=== PATIENT | female | born 1940 | race Caucasian/White ===

== ENCOUNTER 2020-03-29 08:10 | Day surgery (SDC) | payer MEDICARE, OTHER ==
--- NOTE | 2020-03-26 14:39 | HP ---
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 There is no clover malignancy but given their findings she is in need of excisional biopsy, lumpectomy right breast with prior needle placement to evaluate the entire area in question. Family history is negative for breast cancer. She took some hormone replacement therapy for a few years in the past and now currently on medication. PAST MEDICAL HISTORY: Diabetes mellitus type II. 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 PAST SURGICAL HISTORY: Plates and screws in ankle in the past. MEDICATIONS: Plavix. Venlafaxine. ALLERGIES: NKDA. FAMILY HISTORY: Negative in regards to this problem. Negative for breast cancer. SOCIAL HISTORY: No smoking or alcohol abuse. REVIEW OF SYSTEMS: Fourteen systems reviewed. No chest pain or palpitations. Other systems negative or noncontributory as above and per preadmission questionnaire. PHYSICAL EXAMINATION: GENERAL: No acute distress. HEENT: Sclerae nonicteric. NECK: No JVD. CHEST: Equal excursion, nonlabored breathing. CVS: Regular rate and rhythm. BREASTS: She has got a little induration where she had core biopsy recently on the right. No large bumpy masses currently. ABDOMEN: Soft, nontender. EXTREMITIES: No cyanosis. NEURO: Alert, moving extremities symmetrically. PSYCH: Appropriate mood and affect. IMPRESSION: Atypical ductal hyperplasia on core biopsy of right breast. She is in need of lumpectomy with prior needle placement for definitive path to evaluate the whole area to rule out any areas of malignancy. Explained the risks and benefits explained in detail including but not limited to bleeding or infection, risk of wound dehiscence possibly requiring packing, the fact that we will be removing some tissue that there could be some contour changes, risk of hematoma or seroma formation, possibility should she had malignancy in the specimen she will need a wider excision and lymph node sampling at a later date. Risk of burning or numbness but not limited to. She understands and agrees to the planned procedure, will proceed with right breast lumpectomy with prior needle placement as an outpatient.
[~2020-03-29 08:10] MED LIST: Lactated Ringers 1,000 ML IV ONE; Sensorcaine 0.25% 10 ML ONE
[2020-03-29] MEDS ORDERED: CEFAZOLIN 2 GM-D5W BAG** 2 GM/50 ML ML IV ONE (08:20)
[2020-03-29] MEDS ORDERED: Lactated Ringers 0 ML IV ONE (08:20)
[2020-03-29] MEDS ORDERED: Lactated Ringers 1,000 ML IV SCH (08:30)
[2020-03-29] MEDS ORDERED: CEFAZOLIN 2 GM-D5W BAG** 2 GM/50 ML ML IV SCH (08:30)
[2020-03-29 09:35] LABS: ALKALINE PHOSPHATASE 93 U/L (38-126); ANION GAP 8.1 MEQ/L (5-15); BLOOD UREA NITROGEN 23 mg/dL (7-17); CHLORIDE 104 mmol/L (98-107); Calcium 9.5 mg/dL (8.4-10.2); Carbon Dioxide 29 mmol/L (22-30); Creatinine 1 0.89 mg/dL (0.52-1.04); EST GLOMERULAR FILTRATION RATE > 60.0 ML/MIN; Glucose 95 mg/dL (74-106); Potassium 4.2 mmol/L (3.5-5.1); SGOT/AST 27 U/L (14-36); SGPT/ALT 17 U/L (0-35); SODIUM 137 mmol/L (137-145)
--- NOTE | 2020-03-29 12:36 | XRAY ---
Indication: 10:00 right breast needle wire localization. Initial right breast sonogram performed for localization of the 10:00 breast mass. Skin/breast prepped and draped in sterile fashion. 1% lidocaine plane used for local anesthesia. Tiny skin incision made. A 20-gauge Lie[place] needle was then percutaneously inserted. Using ultrasound guidance, needle was advanced for localization of the 10:00 breast mass. Hooked jennifer wire was then inserted with the outer needle removed. Jennifer wire was secured. Patient was then taken to mammography for further imaging. Impression: Technically successful ultrasound guided needle wire localization of 10:00 breast mass. No immediate complications.
--- NOTE | 2020-03-29 12:38 | XRAY ---
Indication: Status post ultrasound guided 10:00 right breast needle wire localization. Low-dose digital mammogram of the right breast was performed in the CC and MLO projection. Hook barbed wire is seen traversing the 10:00 breast mass with mammotome clip immediately adjacent to the naye wire. Impression: Technically successful needle wire localization of 10:00 breast mass.
[2020-03-29] MEDS ORDERED: SUBLIMAZE 100 MCG/2 ML ONE ×3 (12:52→13:56)
[2020-03-29] MEDS ORDERED: DIPRIVAN 200 MG/20 ML IV ONE (12:52)
[2020-03-29] MEDS ORDERED: Ephedrine Sulfate 50 MG/ML ONE (13:12)
--- NOTE | 2020-03-29 13:32 | XRAY ---
Indication: Surgical specimen following needle wire localization. A single specimen radiograph demonstrates a mammotome clip and the abnormal breast tissue with intact naye wire. Findings were reported to the surgeon.
[2020-03-29 14:48] VITALS: PULSE 88; O2SAT 93
[2020-03-29 15:10] VITALS: BP 138/72
--- NOTE | 2020-03-31 07:49 | OP ---
SURGERY DATE/TIME: 03/29/2020 1250 PREOPERATIVE DIAGNOSIS: Right breast atypical ductal hyperplasia in need of excision for definitive path. POSTOPERATIVE DIAGNOSIS: Right breast atypical ductal hyperplasia in need of excision for definitive path, path pending. PROCEDURE: Right breast lumpectomy and prior needle placement. SURGEON: Dr. Owen Munoz. ANESTHESIA: General. ESTIMATED BLOOD LOSS: Minimal. INDICATIONS: As noted above. Risks and benefits explained in detail and not limited to and consent obtained. The site is confirmed and marked in the preoperative holding area. She had been to radiology to have the wire placed per radiology prior needle placement. DESCRIPTION OF PROCEDURE AND FINDINGS: General anesthesia induced. Prepped and draped in usual sterile fashion. After official time out and no disagreement with planned procedure, including a small ellipse of skin dissection was carried down in the direction of the wire and the circumferentially around it in order to obtain an adequate margin. This was carefully dissected free from the underlying chest wall and marked with a single tie at 3:00, double tie at 6:00 and passed off for pathology. Radiology called back and said the margins were good. Small, little behavior clinician controlled with 3-0 Vicryl suture ligature. Good hemostasis noted. The wound irrigated out. Breast parenchyma was brought back together with interrupted 3-0 Vicryl. Skin closed with 4-0 Vicryl. Steri-Strips and sterile dressing applied. The patient tolerated the procedure well. There were no immediate complications.
== END 2020-03-29 15:10 | disposition home or self-care (01) ==
LOC: SDC 08:10
PROVIDERS: ATTEND Surgery
DX: N62 Hypertrophy of breast (principal); N60.11 Diffuse cystic mastopathy of right breast; Z79.899 Other long term (current) drug therapy; Z79.01 Long term (current) use of anticoagulants
CPT/HCPCS: 19281; 36415; 76098; 76942; 80053; 88307; J0690; J2704; J3010

== ENCOUNTER 2024-04-18 06:01 | Day surgery (SDC) | payer MEDICARE, OTHER ==
[2024-04-18] MEDS: NEURONTIN PO ONE (06:10)
[2024-04-18] MEDS: Decadron 4 MG PO ONE (06:10)
[2024-04-18] MEDS: TYLENOL EXTRA STRENGTH 500 MG PO ONE (06:10)
[2024-04-18] MEDS: Lactated Ringers 1,000 ML IV SCH (06:11)
[2024-04-18] MEDS: CEFAZOLIN 2 GM/100 ML NaCl 2 GM/100 ML IVPB IV SCH (06:11)
[2024-04-18 06:27] VITALS: RESP 18
[2024-04-18] MEDS ORDERED: MARCAINE 0.5%-EPI 1:200,000 VL IJ ONE (06:43)
[2024-04-18 06:49] LABS: INR 0.94 (0.8-3.0); PROTIME 10.3 SECONDS (9.4-12.5)
[2024-04-18] MEDS ORDERED: SUBLIMAZE 100 MCG/2 ML ONE (07:51)
[2024-04-18] MEDS ORDERED: propofoL IV ONE (07:52)
[2024-04-18] MEDS ORDERED: Zofran 4 MG/2 ML VIAL ONE (07:52)
[2024-04-18] MEDS ORDERED: dexAMETHasone sodium phosphate ONE (07:52)
[2024-04-18] MEDS ORDERED: Ephedrine Sulfate 50 MG/ML ONE (08:07)
[2024-04-18] MEDS ORDERED: PHENYLEPHRINE HCL ONE (08:10)
--- NOTE | 2024-04-18 08:42 | XRAY ---
Indication: Preop exam. Comparison: January 17, 2017 Portable chest remains hyperinflated and clear. Heart not enlarged with tortuous descending aorta. Bony thorax intact again with osteopenia, mild degenerative changes, and mild scoliosis. Impression: Continued nonacute chest with chronic features.
[2024-04-18 09:43] VITALS: TEMP 96.4; O2SAT 97
[2024-04-18 10:04] VITALS: BP 108/50; PULSE 77
--- NOTE | 2024-04-21 11:09 | OP ---
SURGERY DATE/TIME: 04/18/2024 [id number] PREOPERATIVE DIAGNOSIS: Torn right medial and lateral menisci. POSTOPERATIVE DIAGNOSES: Torn right medial and lateral menisci, 2 loose bodies, mild reactive synovitis and mild osteoarthritis. PROCEDURES: Arthroscopy of the right knee with partial medial and lateral meniscectomies, 3 compartment chondroplasty, removal of 2 loose bodies and incidental shaving of the synovium. SURGEON: Josue Jackson II, DO ANESTHESIA: General. DESCRIPTION OF PROCEDURE AND FINDINGS: The patient was identified and informed consent was obtained. The patient was taken to the operative suite and placed in a supine position on the operating table where the general anesthetic was administered. Once an appropriate level of anesthesia had been obtained, tourniquet was placed high on the right thigh. The right lower extremity was then prepped and draped in the usual sterile fashion. A standard time-out was taken, and at this point, the leg was exsanguinated, and the tourniquet was then elevated to 350 mmHg. A standard superomedial portal was created with an 11 blade. The trocar and cannula were placed in the joint. Joint was distended with the arthroscopic pump. Inferolateral portal was created with an 11 blade. An 18-gauge spinal needle identified the level for the inferomedial portal. The joint was then inspected in a systematic fashion beginning in the suprapatellar pouch. There were no loose bodies. There was synovial hypertrophy and reactive synovitis. Shaver was utilized to shave the synovium and at this point, the undersurface of the patella and trochlear groove were inspected. There was some generalized degenerative thinning and any loose tissue was debrided with shaver. The gutters were inspected. No loose bodies were noted in the gutters. There was noted to be a loose body in the anterior joint at the insertion of the anterior cruciate ligament. This was grasped and removed. The scope was placed in the medial compartment where a complex tear involving the middle and posterior horn of the medial meniscus was encountered, resected with the handheld biting instruments and shaved to a smooth transition with the shaver. There was some mild fraying and degenerative change was noted on the medial femoral condyle and these were shaved as well. Intercondylar notch region was then inspected. The anterior cruciate ligament was noted to be intact. At this point, the scope was placed into the lateral compartment where a second loose body was identified, grasped and removed with a grasper. Patient had a very complex tear involving the lateral meniscus. This was shaved and debrided with a shaver, as well as the handheld biting instruments. Once the meniscus had been contoured to a nice shape back into healthy tissue, the knee was then reinspected and copiously irrigated. No further pathology was identified. The instrumentation was removed and the portal sites were then closed with ally. The knee had been infiltrated with 30 mL of 0.25% Marcaine with epinephrine. Adaptic, 4 x 4's, and a standard postop arthroscopy dressing applied. The patient was then transferred to the cart and taken to the recovery room in satisfactory condition, having tolerated the procedure well.
== END 2024-04-18 10:16 | disposition home or self-care (01) ==
LOC: SDC 06:01
PROVIDERS: ATTEND Orthopaedic Surgery
DX: S83.241A Other tear of medial meniscus, current injury, right knee, initial encounter (principal); S83.281A Other tear of lateral meniscus, current injury, right knee, initial encounter; M23.303 Other meniscus derangements, unspecified medial meniscus, right knee; M23.301 Other meniscus derangements, unspecified lateral meniscus, left knee; I10 Essential (primary) hypertension; Z79.899 Other long term (current) drug therapy; Z79.01 Long term (current) use of anticoagulants; M22.41 Chondromalacia patellae, right knee
CPT/HCPCS: 29880; 36415; 71045; 85610; 93005; G0289; J0690; J1100; J2371; J2405; J2704; J3010; A9270-GY